=== PATIENT | female | born 1995 | race Caucasian/White ===

== ENCOUNTER 2023-12-24 14:01 | Emergency (ER) | payer MEDICAID ==
[~2023-12-24] VITALS: Ht 152.4 cm; Wt 70.0 kg
[2023-12-24 15:04] VITALS: O2SAT 99
[2023-12-24 16:11] LABS: CLARITY URINE CLOUDY (CLEAR); COLOR URINE ORANGE (YELLOW); GLUCOSE URINE NEGATIVE (NEGATIVE); KETONES URINE TRACE (NEGATIVE); LEUKOCYTE ESTERASE URINE TRACE (NEGATIVE); NITRITE URINE NEGATIVE (NEGATIVE); OCCULT BLOOD URINE 3+ (NEGATIVE); PH URINE 6.5 (4.5-8.0); PROTEIN URINE TRACE (NEGATIVE); SPECIFIC GRAVITY URINE 1.027 (1.005-1.030)
[2023-12-24] MEDS: KETOROLAC 30MG/ML VIAL IM ONE (16:34)
[2023-12-24 16:43] LABS: BACTERIA URINE 2+
[2023-12-24 16:44] LABS: RBC URINE TNTC /hpf (0-2); SQUAMOUS EPITHELIAL CELL URINE 1+ /lpf (RARE/1+); WBC URINE 0-2 /hpf (0-2)
[2023-12-24] MEDS ORDERED: IBUP-2028 MT (17:25)
[2023-12-24] MEDS ORDERED: ACET-2708 MT (17:25)
[2023-12-24 17:43] VITALS: BP 114/85; PULSE 79; RESP 19; TEMP 98.3
== END 2023-12-24 17:43 | disposition home or self-care (01) ==
LOC: ER 14:01
DX: M54.50 Low back pain, unspecified (principal); M65.331 Trigger finger, right middle finger; E11.9 Type 2 diabetes mellitus without complications; Z98.890 Other specified postprocedural states
CPT/HCPCS: 99284; 81003; 73140; 96372; J1885